=== PATIENT | female | born 1990 | race Hispanic/Latino ===

== ENCOUNTER 2020-05-21 11:53 | Outpatient (CLI) | payer OTHER ==
[2020-05-22 01:46] LABS: SARS-CoV-2 PCR by NAA Not Detected (NotDetected)
== END 2020-05-21 11:54 | disposition home or self-care (01) ==
LOC: CSHLAB 11:53
PROVIDERS: ATTEND Family Medicine
DX: Z20.822 Contact with and (suspected) exposure to COVID-19 (principal)
CPT/HCPCS: 87635; U0003; U0005

== ENCOUNTER 2022-01-08 17:45 | Inpatient (IN) | payer MEDICAID ==
[~2022-01-08 17:45] MED LIST: Iopamidol 300 61% 100 ML VIAL FS ONE
[2022-01-08] MEDS ORDERED: Ondansetron PF 4 MG/2 ML Vial ONE (18:09)
[2022-01-08] MEDS ORDERED: Ketorolac Tromethamine 30 MG/ML VIAL ONE (18:28)
[2022-01-08 18:44] LABS: #Monocytes 0.3 10x3/uL (0.0-1.1); #Neutrophils 9.1 10x3/uL (1.5-8.4); %Basophils 0.2 % (0.0-2.0); %Eosinophils 0.1 % (0.0-6.0); %Lymphocytes 5.4 % (18.0-47.0); %Monocytes 3.4 % (0.0-10.0); %Neutrophils 90.7 % (40.0-75.0); Hemoglobin 11.9 g/dL (12.0-15.5); Mean Corpuscular HGB CONC 33.6 g/dL (32.0-36.0); Mean Corpuscular Hemoglobin 28.5 pg (27.0-33.0); Mean Corpuscular Volume 84.7 fl (81.6-98.3); Mean Platelet Volume 9.8 fl (7.4-10.4); Platelet Count 224 10x3/uL (150-450); RBC Distribution Width 13.3 % (11.5-14.5); Red Blood Cell (RBC) Count 4.18 10x6/uL (3.90-5.03); White Blood Cell (WBC) Count 10.1 10x3/uL (3.5-10.5)
[2022-01-08 18:48] LABS: BHCG - Serum Negative (NEGATIVE); Pregs Control Background? CLEAR/WHITE (CLR/WHITE); Pregs Control Bar Appear? YES (CONTROL BAR)
[2022-01-08 18:51] LABS: Bilirubin Neg (Negative); Blood, Urine 250 (Negative); Clarity Bloody (Clear); Glucose, Urine (Dipstick) Normal (Negative); Ketone, Urine 5 mg/dL (Negative); Leukocyte 100 (Negative); Nitrite Positive (Negative); Protein, Urine (Dipstick) 500 mg/dl (Neg-Trace)
[2022-01-08 18:55] LABS: ALT (SGPT) 22 U/L (8-55); AST (SGOT) 21 U/L (5-34); Albumin 4.1 g/dL (3.5-5.0); Alkaline Phosphatase 91 U/L (40-110); Anion Gap 12 mmol/L (10-20); BUN (Urea Nitrogen) 9 mg/dL (7.0-18.7); Bilirubin, Total 0.7 mg/dL (0.2-1.2); Calc. Creatinine Clearance 0 mL/min (70-130); Calcium 8.9 mg/dL (7.8-10.44); Carbon Dioxide 22 mmol/L (22-29); Chloride 103 mmol/L (98-107); Estimated GFR 118; Globulin 2.8 g/dL (2.4-3.5); Glucose 127 mg/dL (70-105); Potassium 3.2 mmol/L (3.5-5.1); Protein, Total 6.9 g/dL (6.0-8.3); Sodium 134 mmol/L (136-145)
[2022-01-08] MEDS ORDERED: Acetaminophen 500 MG TAB ONE (19:01)
[2022-01-08 19:02] LABS: RBC/HPF Greater than 50 HPF (0-3)
[2022-01-08 19:03] LABS: Bacteria/HPF 3+ HPF (None Seen)
[2022-01-08 19:16] LABS: SARS-CoV-2 NAA Rapid Test Not Detected (NotDetected)
[2022-01-08] MEDS ORDERED: cefTRIAXone\\ROCEPHIN 1 GM VIAL ONE (20:06)
[2022-01-08] MEDS ORDERED: Senokot S 8.6-50 MG TAB PO PRN (21:15)
[2022-01-08] MEDS ORDERED: Zolpidem Tartrate 5 MG TAB PO PRN (21:15)
[2022-01-08] MEDS ORDERED: Ondansetron PF 4 MG/2 ML Vial IVP PRN (21:15)
[2022-01-08] MEDS ORDERED: Guaifenesin DM 100-10/5 ML UDCUP PO PRN (21:15)
[2022-01-08] MEDS ORDERED: Calcium Carbonate 500 MG ChewTAB PO PRN (21:15)
[2022-01-08] MEDS ORDERED: Acetaminophen 325 MG TAB PO PRN (21:15)
[2022-01-08] MEDS ORDERED: Lactated Ringer's 500 ML IV SCH (21:30)
[2022-01-08] MEDS ORDERED: Potassium Chloride 20 MEQ in Premix Bag 1 BAG IVPB SCH (21:30)
[2022-01-08 22:33] VITALS: BMI 40.8
[2022-01-08] MEDS: HYDROcodone/Acetaminophen 5/325 mg Tablet PO PRN (22:54)
[2022-01-08] MEDS: Nicotine 14 MG PATCH TD SCH (22:56)
[2022-01-08] MEDS: Cefepime 2 GM in Sodium Chloride 0.9% 100 ML IVPB SCH (22:56)
[2022-01-08] MEDS: Lactated Ringer's 1,000 ML IV SCH (22:56)
[2022-01-09] MEDS: Vancomycin HCl 1 GM in Sodium Chloride 0.9% 250 ML 250 ML IVPB SCH ×2 (01:24→13:23)
[2022-01-09 04:20] LABS: #Monocytes 0.5 10x3/uL (0.0-1.1); #Neutrophils 5.4 10x3/uL (1.5-8.4); %Basophils 0.1 % (0.0-2.0); %Eosinophils 0.5 % (0.0-6.0); %Lymphocytes 22.1 % (18.0-47.0); %Monocytes 5.9 % (0.0-10.0); Mean Corpuscular HGB CONC 33.2 g/dL (32.0-36.0); Mean Corpuscular Hemoglobin 28.5 pg (27.0-33.0); Mean Corpuscular Volume 85.8 fl (81.6-98.3); Mean Platelet Volume 10.1 fl (7.4-10.4); Platelet Count 181 10x3/uL (150-450); RBC Distribution Width 13.4 % (11.5-14.5); Red Blood Cell (RBC) Count 3.51 10x6/uL (3.90-5.03); White Blood Cell (WBC) Count 7.6 10x3/uL (3.5-10.5)
[2022-01-09 04:43] LABS: Anion Gap 8 mmol/L (10-20); BUN (Urea Nitrogen) 7 mg/dL (7.0-18.7); Calc. Creatinine Clearance 189 mL/min (70-130); Calcium 7.5 mg/dL (7.8-10.44); Carbon Dioxide 22 mmol/L (22-29); Chloride 109 mmol/L (98-107); Estimated GFR 120; Glucose 116 mg/dL (70-105); Potassium 3.3 mmol/L (3.5-5.1); Sodium 136 mmol/L (136-145)
[2022-01-09] MEDS: Lactated Ringer's 1,000 ML IV SCH ×3 (05:33→21:39)
[2022-01-09] MEDS: HYDROcodone/Acetaminophen 5/325 mg Tablet PO PRN ×2 (08:29→19:46)
[2022-01-09] MEDS: Enoxaparin Sodium 40 MG/0.4 ML SYRINGE SC SCH (08:31)
[2022-01-09] MEDS ORDERED: FLU VACC QS2022-23(6MOS UP)/PF 60 MCG/0.5 ML SYRINGE IM ONE (09:00)
[2022-01-09] MEDS ORDERED: Potassium Chloride 20 MEQ TAB PO SCH (09:00)
[2022-01-09] MEDS ORDERED: Ketorolac Tromethamine 30 MG/ML VIAL IVP SCH ×2 (11:00→22:00)
[2022-01-09] MEDS: Cefepime 2 GM in Sodium Chloride 0.9% 100 ML IVPB SCH ×2 (11:29→23:23)
[2022-01-09 13:06] LABS: Hemoglobin A1c 5.1 % (4.0-6.0)
[2022-01-09] MEDS: Nicotine 14 MG PATCH TD SCH (21:41)
[2022-01-10] MEDS: Vancomycin HCl 1 GM in Sodium Chloride 0.9% 250 ML 250 ML IVPB SCH ×2 (00:20→12:05)
[2022-01-10] MEDS: HYDROcodone/Acetaminophen 5/325 mg Tablet PO PRN ×2 (00:26→09:49)
[2022-01-10] MEDS: Lactated Ringer's 1,000 ML IV SCH ×3 (02:58→12:06)
[2022-01-10 04:40] LABS: #Eosinphils 0.1 10x3/uL (0.0-0.5); #Monocytes 0.5 10x3/uL (0.0-1.1); #Neutrophils 3.4 10x3/uL (1.5-8.4); %Basophils 0.2 % (0.0-2.0); %Eosinophils 1.9 % (0.0-6.0); %Lymphocytes 35.8 % (18.0-47.0); %Monocytes 7.8 % (0.0-10.0); %Neutrophils 54.1 % (40.0-75.0); Hemoglobin 10.4 g/dL (12.0-15.5); Mean Corpuscular HGB CONC 33.5 g/dL (32.0-36.0); Mean Corpuscular Hemoglobin 28.3 pg (27.0-33.0); Mean Corpuscular Volume 84.2 fl (81.6-98.3); Mean Platelet Volume 9.6 fl (7.4-10.4); Platelet Count 227 10x3/uL (150-450); RBC Distribution Width 13.2 % (11.5-14.5); Red Blood Cell (RBC) Count 3.68 10x6/uL (3.90-5.03); White Blood Cell (WBC) Count 6.3 10x3/uL (3.5-10.5)
[2022-01-10 04:49] LABS: Anion Gap 12 mmol/L (10-20); BUN (Urea Nitrogen) Less than 4 mg/dL (7.0-18.7); Calc. Creatinine Clearance 212 mL/min (70-130); Calcium 8.6 mg/dL (7.8-10.44); Carbon Dioxide 25 mmol/L (22-29); Chloride 106 mmol/L (98-107); Estimated GFR 124; Glucose 96 mg/dL (70-105); Potassium 3.7 mmol/L (3.5-5.1); Sodium 139 mmol/L (136-145)
[2022-01-10 07:55] VITALS: TEMP 98.4
[2022-01-10] MEDS: Enoxaparin Sodium 40 MG/0.4 ML SYRINGE SC SCH (08:04)
[2022-01-10] MEDS: Cefepime 2 GM in Sodium Chloride 0.9% 100 ML IVPB SCH (09:50)
[2022-01-10] MEDS ORDERED: Ketorolac Tromethamine 30 MG/ML VIAL IVP SCH (11:00)
[2022-01-10 12:13] LABS: Vancomycin, Trough 4.3 ug/mL
[2022-01-10] MEDS ORDERED: Iopamidol 300 61% 100 ML VIAL FS ONE (15:22)
[2022-01-10] MEDS ORDERED: VANCOMYCIN 1.25 GM/250 ML BAG 1.25 GM in Premix Bag 1 BAG IVPB SCH (17:00)
[2022-01-10 18:04] VITALS: BP 116/74
== END 2022-01-10 18:00 | disposition home or self-care (01) | DRG 871 ==
LOC: CSHERS 17:45 → CSHTELE 21:38 → OBSVTOIN 21:38
PROVIDERS: ADMIT Student in an Organized Health Care Education/Training Program; ATTEND Internal Medicine
DX: A41.9 Sepsis, unspecified organism (principal); N15.1 Renal and perinephric abscess; N39.0 Urinary tract infection, site not specified; N10 Acute pyelonephritis; E87.1 Hypo-osmolality and hyponatremia; Z68.41 Body mass index [BMI] 40.0-44.9, adult; F17.210 Nicotine dependence, cigarettes, uncomplicated; E66.01 Morbid (severe) obesity due to excess calories; Z20.822 Contact with and (suspected) exposure to COVID-19; Z98.890 Other specified postprocedural states; Z90.49 Acquired absence of other specified parts of digestive tract; Z88.8 Allergy status to other drugs, medicaments and biological substances; Z91.010 Allergy to peanuts; Z91.048 Other nonmedicinal substance allergy status; Z79.899 Other long term (current) drug therapy; Z79.82 Long term (current) use of aspirin; Z86.16 Personal history of COVID-19
CPT/HCPCS: 36415; 74177; 74178; 80048; 80053; 80202; 81003; 81015; 83036; 83605; 84703; 85025; 87040; 87077; 87086; 87186; 96361; 96365; 96375; J0692; J0696; J1650; J1885; J2405; J3370; J3480; J3490; J7050; J7120; Q9967